=== PATIENT | male | born 1995 | race African-American/Black ===

== ENCOUNTER → 2024-03-27 | Emergency (ER) | payer MEDICAID ==
[~2024-03-27] VITALS: Ht 177.8 cm; Wt 104.5 kg
[2024-03-27 11:21] VITALS: BP 141/65; PULSE 84; RESP 16; TEMP 98.1; O2SAT 99
[2024-03-27] MEDS: ACETAMINOPHEN 325MG TABLET PO ONE (11:52)
== END ==
LOC: ER 11:30
DX: M79.672 Pain in left foot (principal); W18.39XA Other fall on same level, initial encounter; Y93.89 Activity, other specified; Y92.89 Other specified places as the place of occurrence of the external cause; Y99.8 Other external cause status
CPT/HCPCS: 73610; 73630; 99284